=== PATIENT | female | born 1985 | race Caucasian/White ===

== ENCOUNTER 2021-07-18 17:25 | Emergency (ER) | payer MEDICAID ==
[~2021-07-18] VITALS: Ht 154.9 cm; Wt 54.5 kg
[2021-07-18 17:52] VITALS: BP 108/60
[2021-07-18] MEDS ORDERED: SODIUM CHLORIDE 0.9% 1,000 ML IV ONE (18:00)
== END 2021-07-18 18:26 | disposition left against medical advice (07) ==
LOC: EMS 17:26
DX: R10.32 Left lower quadrant pain (principal); F11.90 Opioid use, unspecified, uncomplicated; F15.90 Other stimulant use, unspecified, uncomplicated; F17.210 Nicotine dependence, cigarettes, uncomplicated
CPT/HCPCS: 93005; 99283